=== PATIENT | male | born 1980 | race Caucasian/White ===

== ENCOUNTER 2019-06-09 19:52 | Emergency (ER) | payer OTHER ==
[~2019-06-09] VITALS: Ht 175.3 cm; Wt 83.9 kg
[~2019-06-09 19:52] MED LIST: HYDROXYZINE HCL25 MG PO; KEFLEX500 MG PO; PERCOCET 5-3251 EACH PO; TRAZODONE HCL100 MG PO; VENLAFAXINE HCL75 MG PO
== END 2019-06-09 20:25 | disposition home or self-care (01) ==
LOC: ED 19:52
DX: L98.9 Disorder of the skin and subcutaneous tissue, unspecified (principal); F17.200 Nicotine dependence, unspecified, uncomplicated
CPT/HCPCS: 99283

== ENCOUNTER 2021-07-06 12:19 | Emergency (ER) | payer OTHER ==
[~2021-07-06] VITALS: Ht 175.3 cm; Wt 78.2 kg
== END 2021-07-06 14:45 | disposition home or self-care (01) ==
LOC: ED 12:19
DX: R10.30 Lower abdominal pain, unspecified (principal); D72.10 Eosinophilia, unspecified; F17.200 Nicotine dependence, unspecified, uncomplicated
CPT/HCPCS: 36415; 74177; 81001; 85025; 99284-25; J7030; Q9967

== ENCOUNTER 2025-03-20 12:15 | Emergency (ER) | payer SELFPAY ==
[~2025-03-20] VITALS: Ht 175.3 cm; Wt 73.0 kg
--- OUTSIDE RECORDS SUMMARY | 2025-03-20 12:21 | XMS ---
PreManage Notification: AMADOU VILLARREAL [employer] Events No recent Security Events currently on file CRITERIA MET - [facility] - 2 Visits in 30 Days CARE PROVIDERS There are no care providers on record at this time. Valdo has no Care Guidelines for this patient. [facility] V[facility] (12 MO.) [facility] NOTE: Visits indicate total known visits. ED/[facility] VISIT TRACKING (12 MO.) 03/20/2025 12:15 [facility] [place] TYPE: Emergency COMPLAINT: - RT SHOULDER INJURY 03/19/2025 18:17 [facility] TYPE: Emergency COMPLAINT: - RT SHOULDER INJURY INPATIENT VISIT TRACKING (12 MO.) No inpatient visits to display in this time frame [email or web address]
[2025-03-20] MEDS ORDERED: IBU-200200 MG PO (12:44)
[2025-03-20 14:30] VITALS: BP 118/74
== END 2025-03-20 14:30 | disposition home or self-care (01) ==
LOC: ED 12:15
DX: S43.101A Unspecified dislocation of right acromioclavicular joint, initial encounter (principal); W19.XXXA Unspecified fall, initial encounter
CPT/HCPCS: 73030; 99283